=== PATIENT | female | born 1955 | race Two or more races ===

== ENCOUNTER 2022-01-07 18:25 | Emergency (ER) | payer SELFPAY ==
[~2022-01-07] VITALS: Ht 154.9 cm; Wt 54.5 kg
[2022-01-07] MEDS ORDERED: ONDANSETRON PF 4 MG/2 ML VIAL. IVP ONE (20:00)
[2022-01-07] MEDS ORDERED: KETOROLAC 15 MG/ML VIAL. IVP ONE (20:00)
[2022-01-07] MEDS ORDERED: MORPHINE SULFATE 4 MG/ML INJ. IVP ONE (20:00)
[2022-01-07 20:02] LABS: BASO # 0.1 x10^3/uL (0.0-0.2); BASO % 1 % (0-3); EOS # 0.1 x10^3/uL (0.0-0.7); EOS % 1 % (0-3); HEMATOCRIT 37.7 % (36.0-47.0); HEMOGLOBIN 12.6 g/dL (12.0-15.5); LYMPH # 1.8 x10^3/uL (1.0-4.8); LYMPH % 18 % (24-48); MEAN CORPUSCULAR HEMOGLOBIN 27 pg (25-35); MEAN CORPUSCULAR HGB CONC 33 g/dL (31-37); MEAN CORPUSCULAR VOLUME 81 fL (79-100); MONO # 0.9 x10^3/uL (0.0-1.1); MONO % 9 % (0-9); NEUT # 7.2 x10^3/uL (1.8-7.7); NEUT % 71 % (31-73); PLATELET COUNT 356 x10^3/uL (140-400); RED BLOOD COUNT 4.66 x10^6/uL (3.50-5.40); RED CELL DISTRIBUTION WIDTH 14.3 % (11.5-14.5); WHITE BLOOD COUNT 10.1 x10^3/uL (4.0-11.0)
[2022-01-07 20:10] LABS: BACTERIA,URINE 0 /HPF (0-FEW); RBC,URINE 0 /HPF (0-2); WBC,URINE OCC /HPF (0-4)
[2022-01-07 20:12] LABS: CALCIUM 9.3 mg/dL (8.5-10.1); CREATININE 1.2 mg/dL (0.6-1.0); GFR 45.2; POTASSIUM 3.8 mmol/L (3.5-5.1)
[2022-01-07 20:19] LABS: ALBUMIN 3.6 g/dL (3.4-5.0); ALBUMIN/GLOBULIN RATIO 0.9 (1.0-1.7); TOTAL BILIRUBIN 0.3 mg/dL (0.2-1.0); TOTAL PROTEIN 7.8 g/dL (6.4-8.2)
--- NOTE | 2022-01-07 20:48 | RAD ---
AP chest. HISTORY: Epigastric pain AP view was taken of the chest. Heart is normal in size. There is no effusion. There is a slight inte rstitial prominence which could be minimal interstitial infiltrates or mild fibrosis. I do not have a n old study for comparison. There is no confluent pneumonia. IMPRESSION: 1. Slight interstitial prominence without a confluent pneumonia. Electronically signed by: Reji Rangel MD (01/07/2022 8:46 PM) [facility]
[2022-01-07] MEDS ORDERED: CONTRAST GIVEN. MC PRN (21:00)
--- NOTE | 2022-01-07 21:10 | RAD ---
EXAM: ULTRASOUND ABDOMEN LIMITED CLINICAL HISTORY: Reason: epigastric and RUQ pain, marked leukocytosis; eval GB and biliary system / Spl. Instructions: / History: COMPARISON: None available. TECHNIQUE: Limited ultrasound examination of the right upper quadrant of the abdomen was performed. FINDINGS: Liver contour is normal. Hepatopedal flow noted in the portal vein. Gallbladder is absent. Common bile duct measures 5 mm in diameter. Right kidney measures 9.3 cm in long axis. No hydronephrosis. Visualized portions aorta and IVC are unremarkable. IMPRESSION: 1. Gallbladder is absent. 2. Normal sonographic appearance the liver. 3. No right-sided hydronephrosis. Electronically signed by: Fidel Mathew MD (01/07/2022 9:08 PM) [facility]
[2022-01-07] MEDS ORDERED: IOHEXOL 300 MG/ML 100ML VIAL. IV ONE (21:30)
--- NOTE | 2022-01-07 21:44 | RAD ---
PQRS Compliance Statement: One or more of the following individualized dose reduction techniques were utilized for this examinat ion: 1. Automated exposure control 2. Adjustment of the mA and/or kV according to patient size 3. Use of iterative reconstruction technique CT ABDOMEN+PELVIS W Clinical Indication: Reason: upper > generalized abd pain x1 week Comparison: None. Technique: Helical CT imaging of the abdomen and pelvis is performed after 60 cc of Omnipaque 300 IV contrast. Oral contrast not administered. Findings: There is a 4 mm nodule in the right middle lobe, image 8. There is a 3 mm nodule in the lingula, imag e 3. There is mild scarring or atelectasis inferiorly in the right middle lobe. Cardiac size normal. Cholecystectomy. The liver, spleen, pancreas, adrenal glands, and abdominal aorta caliber are normal. Kidneys enhance symmetrically, no hydronephrosis. Small left renal cyst does not require follow-up. The stomach is mostly decompressed. Small fat-containing umbilical hernia. There is no dilated small bowel. There is distal colon diverticulosis. The appendix is not identified, no secondary signs of ap pendicitis. No colon wall thickening is seen. There is no abdominal adenopathy or free fluid. The urinary bladder is normal. There is a rim calcified fibroid measuring 2.4 cm. Uterus is atrophic. There is no pelvic free fluid. No acute bone abnormality. IMPRESSION: 1. No acute abdominal or pelvic abnormality. 2. Distal colon diverticulosis. 3. Calcified uterine fibroid. 4. There are 2 3-4 mm noncalcified nodules in the lung bases. Consider CT chest follow-up in 12 tika hs if patient has risk factors for lung malignancy, otherwise no follow-up is required per Fleischner Society guidelines. Electronically signed by: Jose Darby MD (01/07/2022 9:42 PM) [facility]
[2022-01-07] MEDS ORDERED: ACET500T68 PO (22:26)
[2022-01-07] MEDS ORDERED: SUCR1TAB35 PO (22:26)
[2022-01-07] MEDS ORDERED: OMEP20CA16 PO (22:26)
--- NOTE | 2022-01-07 22:27 | PHYS DOC ---
Past Medical History Past Surgical History: Appendectomy, Cholecystectomy Smoking Status: Current Some Day Smoker Alcohol Use: Occasionally Adult General Chief Complaint Chief Complaint: ABDOMINAL PAIN HPI HPI The patient is a 66-year-old female who presents for evaluation of about 1 week of focal, sharp, nonradiating epigastric pain associated with nausea. Discomfort is constant, worse with deep palpation of the epigastrium and nothing else seems to make it better or worse. No associated fevers, vomiting, hematemesis, hematochezia or melena, upper respiratory congestion/rhinorrhea, cough, sore throat, shortness of breath or chest pain of any kind, abdominal pain of any kind, flank pain, midline back pain, dysuria, hematuria, polyuria or oliguria, changes in bowel habits, unusual vaginal discharge or bleeding, pain or swelling to arms or legs. Patient was seen a couple of days ago by primary care at which time labs were obtained and were remarkable for a marked leukocytosis. Labs were otherwise generally reassuring. Patient was redirected to the emergency department because of the leukocytosis. Review of Systems Review of Systems A 12 point review of systems was completed and was negative except where noted in HPI above. Current Medications Current Medications Current Medications Medications (Trade) Dose Ordered Sig/Kat Start Time Stop Time Status Last Admin Dose Admin Famotidine (Pepcid) 20 mg 1X ONCE 01/07/22 22:30 01/07/22 22:31 DC 01/07/22 21:54 20 MG Info (CONTRAST GIVEN -- Rx MONITORING) 1 each PRN DAILY PRN 01/07/22 21:00 01/07/22 22:45 DC Iohexol (Omnipaque 300 Mg/ml) 75 ml 1X ONCE 01/07/22 21:30 01/07/22 21:31 DC 01/07/22 21:25 75 ML Ketorolac Tromethamine (Toradol 15mg Vial) 15 mg 1X ONCE 01/07/22 20:00 01/07/22 20:01 DC 01/07/22 20:06 15 MG Morphine Sulfate (Morphine Sulfate) 4 mg 1X ONCE 01/07/22 20:00 01/07/22 20:01 DC Multi-Ingredient Mouthwash/Gargle (Gi Cocktail) 20 ml 1X ONCE 01/07/22 22:30 01/07/22 22:31 DC 01/07/22 21:54 20 ML Ondansetron HCl (Zofran) 4 mg 1X ONCE 01/07/22 20:00 01/07/22 20:01 DC 01/07/22 20:06 4 MG Allergies Allergies Allergies Coded Allergies Type Severity Reaction Last Updated Verified No Known Drug Allergies 01/07/22 No Physical Exam Physical Exam 66-year-old female appearing nontoxic and in no acute distress. Head is normocephalic and atraumatic. Neck is supple and nontender. Oropharynx is mo ist. Lungs are clear to auscultation at all stations. There is a normal S1 and S2 without rubs or gallops and capillary refill is appropriate, less than 2 seconds globally. Abdomen is soft, nondistended and with mild focal epigastric tenderness to palpation without rebound or guarding. No right-sided or lower quadrant abdominal tenderness to palpation. Skin is warm and dry without cyanosis, clubbing or edema. Psychiatrically, the patient demonstrates appropriate mood and affect and is alert. Current Patient Data Vital Signs Vital Signs Date Time Temp Pulse Resp B/P (MAP) Pulse Ox O2 Delivery O2 Flow Rate FiO2 01/07/22 22:40 70 14 133/68 (89) 95 Room Air 01/07/22 18:40 97.8 97.8 Lab Values Laboratory Tests Test 01/07/22 18:53 01/07/22 19:25 Urine Collection Type Unknown Urine Color (Auto) Colorless Urine Turbidity Clear Urine pH (Auto) 5.5 (<5.0-8.0) Urine Specific [place] 1.005 (1.000-1.030) Urine Protein (Auto) Negative mg/dL (Negative) Urine Glucose (Auto)(UA) Negative mg/dL (Negative) Urine Ketones (Auto) Negative mg/dL (Negative) Urine Blood (Auto) Negative (Negative) Urine Nitrite Negative (Negative) Urine Bilirubin (Auto) Negative (Negative) Urine Urobilinogen (Auto) Normal mg/dL (Normal) Urine Leukocyte Esterase (Auto) Negative (Negative) Urine RBC 0 /HPF (0-2) Urine WBC Occ /HPF (0-4) Urine Bacteria 0 /HPF (0-FEW) White Blood Count 10.1 x10^3/uL (4.0-11.0) Red Blood Count 4.66 x10^6/uL (3.50-5.40) Hemoglobin 12.6 g/dL (12.0-15.5) Hematocrit 37.7 % (36.0-47.0) Mean Corpuscular Volume 81 fL (79-100) Mean Corpuscular Hemoglobin 27 pg (25-35) Mean Corpuscular Hemoglobin Concent 33 g/dL (31-37) Red Cell Distribution Width 14.3 % (11.5-14.5) Platelet Count 356 x10^3/uL (140-400) Neutrophils (%) (Auto) 71 % (31-73) Lymphocytes (%) (Auto) 18 % (24-48) L Monocytes (%) (Auto) 9 % (0-9) Eosinophils (%) (Auto) 1 % (0-3) Basophils (%) (Auto) 1 % (0-3) Neutrophils # (Auto) 7.2 x10^3/uL (1.8-7.7) Lymphocytes # (Auto) 1.8 x10^3/uL (1.0-4.8) Monocytes # (Auto) 0.9 x10^3/uL (0.0-1.1) Eosinophils # (Auto) 0.1 x10^3/uL (0.0-0.7) Basophils # (Auto) 0.1 x10^3/uL (0.0-0.2) Sodium Level 136 mmol/L (136-145) Potassium Level 3.8 mmol/L (3.5-5.1) Chloride Level 102 mmol/L (98-107) Carbon Dioxide Level 26 mmol/L (21-32) Anion Gap 8 (6-14) Blood Urea Nitrogen 23 mg/dL (7-20) H Creatinine 1.2 mg/dL (0.6-1.0) H Estimated GFR (Cockcroft-Gault) 45.2 BUN/Creatinine Ratio 19 (6-20) Glucose Level 112 mg/dL (70-99) H Lactic Acid Level 0.7 mmol/L (0.4-2.0) Calcium Level 9.3 mg/dL (8.5-10.1) Total Bilirubin 0.3 mg/dL (0.2-1.0) Aspartate Amino Transferase (AST) 13 U/L (15-37) L Alanine Aminotransferase (ALT) 17 U/L (14-59) Alkaline Phosphatase 65 U/L (46-116) Troponin I High Sensitivity 5 ng/L (4-50) Total Protein 7.8 g/dL (6.4-8.2) Albumin 3.6 g/dL (3.4-5.0) Albumin/Globulin Ratio 0.9 (1.0-1.7) L Lipase 103 U/L (73-393) Laboratory Tests 01/07/22 19:25 Laboratory Tests 01/07/22 19:25 EKG EKG Sinus rhythm, rate 73, no acute ST elevation or depression, FL 148, QRS 78, QTc 424, EP interpretation. Nonischemic tracing, intervals appropriate. Radiology/Procedures Radiology/Procedures CT ABDOMEN+PELVIS W Clinical Indication: Reason: upper > generalized abd pain x1 week Comparison: None. Technique: Helical CT imaging of the abdomen and pelvis is performed after 60 cc of Omnipaque 300 IV contrast. Oral contrast not administered. Findings: There is a 4 mm nodule in the right middle lobe, image 8. There is a 3 mm nodule in the lingula, image 3. There is mild scarring or atelectasis inferiorly in the right middle lobe. Cardiac size normal. Cholecystectomy. The liver, spleen, pancreas, adrenal glands, and abdominal aorta caliber are normal. Kidneys enhance symmetrically, no hydronephrosis. Small left renal cyst does not require follow-up. The stomach is mostly decompressed. Small fat-containing umbilical hernia. There is no dilated small bowel. There is distal colon diverticulosis. The appendix is not identified, no secondary signs of appendicitis. No colon wall thickening is seen. There is no abdominal adenopathy or free fluid. The urinary bladder is normal. There is a rim calcified fibroid measuring 2.4 cm. Uterus is atrophic. There is no pelvic free fluid. No acute bone abnormality. IMPRESSION: 1. No acute abdominal or pelvic abnormality. 2. Distal colon diverticulosis. 3. Calcified uterine fibroid. 4. There are 2 3-4 mm noncalcified nodules in the lung bases. Consider CT chest follow-up in 12 months if patient has risk factors for lung malignancy, otherwise no follow-up is required per Fleischner Society guidelines. Electronically signed by: Jose Darby MD (01/07/2022 9:42 PM) [facility] DICTATED and SIGNED BY: JOSE DARBY MD DATE: 01/07/222133 []EXAM: ULTRASOUND ABDOMEN LIMITED CLINICAL HISTORY: Reason: epigastric and RUQ pain, marked leukocytosis; eval GB and biliary system / Spl. Instructions: / History: COMPARISON: None available. TECHNIQUE: Limited ultrasound examination of the right upper quadrant of the abdomen was performed. FINDINGS: Liver contour is normal. Hepatopedal flow noted in the portal vein. Gallbladder is absent. Common bile duct measures 5 mm in diameter. Right kidney measures 9.3 cm in long axis. No hydronephrosis. Visualized portions aorta and IVC are unremarkable. IMPRESSION: 1. Gallbladder is absent. 2. Normal sonographic appearance the liver. 3. No right-sided hydronephrosis. Electronically signed by: Fidel Burnett MD (01/07/2022 9:08 PM) [facility] DICTATED and SIGNED BY: FIDEL BURNETT MD DATE: 01/07/222105 AP chest. HISTORY: Epigastric pain AP view was taken of the chest. Heart is normal in size. There is no effusion. There is a slight interstitial prominence which could be minimal interstitial infiltrates or mild fibrosis. I do not have an old study for comparison. There is no confluent pneumonia. IMPRESSION: 1. Slight interstitial prominence without a confluent pneumonia. Electronically signed by: Reji Rangel MD (01/07/2022 8:46 PM) [facility] DICTATED and SIGNED BY: REJI RANGEL MD DATE: 01/07/222044 Course & Med Decision Making Course & Med Decision Making Labs and imaging wholly nonacute. Leukocytosis seen a couple of days ago on outpatient labs has completely resolved. Patient had complete resolution of her presenting abdominal discomfort after a GI cocktail and some Pepcid. Suspect acid reflux, gastritis or ulcer. Will cover empirically for ulcer with ome prazole DR and Carafate and will redirect to gastroenterology for close follow- up in the office. Patient will likely benefit from upper endoscopy. She understands that if she feels worse instead of better or develops other new symptoms of concern that she will need to return to emergency department immediately for reevaluation. All questions were answered. Fluent bedside French interpretation used to obtain history, perform examination, and disposition the patient. Dragon Disclaimer Dragon Disclaimer This electronic medical record was generated, in whole or in part, using a voice recognition dictation system. Departure Departure Impression: Primary Impression: Acute epigastric pain Disposition: 01 HOME / SELF CARE / HOMELESS Condition: IMPROVED Referrals: NETO GALEANO MD Patient Instructions: Abdominal Pain (Nonspecific) Additional Instructions: Follow-up very closely with Dr. Galeano of gastroenterology (the stomach and intestine doctors) in the next 2 to 4 days for reevaluation of your symptoms and a discussion of next best steps in care. Call tomorrow to make an appointment to be seen and let the clinical psychology teacher know that you were in the emergency dep artment for abdominal pain and the emergency doctor wanted you to have very close follow-up in the next 1 week with the GI doctor. In the meantime, drink plenty of fluids. Begin taking the omeprazole acid robbi medication once a day as prescribed to reduce stomach acid and improve discomfort. Take the Carafate medication 4 times a day before meals and at bedtime. For pain, you may also take a 500 mg extra strength Tylenol every 6 hours as needed. Return to the emergency department right away for worsening symptoms of any kind or with any other new symptoms of concern. Scripts Acetaminophen (ACETAMINOPHEN) 500 Mg Tablet 1 TAB PO PRN Q6HRS PRN for pain or fever for 15 Days, #60 TAB 0 Refills Prov: JESSE LOPEZ MD 01/07/22 Sucralfate (CARAFATE) 1 Gm Tablet 1 TAB PO QID for 30 Days, #120 TAB 0 Refills Prov: JESSE LOPEZ MD 01/07/22 Omeprazole (OMEPRAZOLE) 20 Mg Capsule. 1 CAP PO DAILY, #30 CAP 1 Refill Prov: JESSE LOPEZ MD 01/07/22 JESSE LOPEZ MD Jan 07, 2022 22:27
[2022-01-07] MEDS ORDERED: LIDO:MAALOX 1:1 20 ML SINGLE DOSE. SWSW ONE (22:30)
[2022-01-07] MEDS ORDERED: FAMOTIDINE 20 MG TABLET. PO ONE (22:30)
[2022-01-07 22:40] VITALS: BP 133/68
--- NOTE | 2022-01-08 13:46 | EKG ---
[facility] [address] [place] [address] Test Date: 2022-01-07 Test Time: 20:28:30 Pat Name: ABNER CAZARES Department: Room: Gender: F Body Mechanic: : 1955 Requested By: JESSE LOPEZ Order Number: [id number] Reading MD: Andrea Schroeder Measurements Intervals [place] Rate: 73 P: 137 [place]: 148 QRS: -180 QRSD: 78 T: 152 QT: 382 QTc: 424 Interpretive Statements SINUS RHYTHM T ABNORMALITY IN HIGH LATERAL LEADS ABNORMAL ECG RI6.01 No previous ECG available for comparison Electronically Signed On 01-10-2022 13:38:01 CDT by Andrea Schroeder
[2022-01-15] MEDS ORDERED: LEVO500T9 PO (12:17)
[2022-01-15] MEDS ORDERED: ALBU2.5V8 IH (12:17)
[2022-01-15] MEDS ORDERED: DOXY100C3 PO (12:17)
[2022-01-15] MEDS ORDERED: METH4TAB2 PO (12:17)
== END 2022-01-07 22:42 | disposition home or self-care (01) ==
LOC: ER 18:25
DX: R10.13 Epigastric pain (principal); R11.0 Nausea; F17.200 Nicotine dependence, unspecified, uncomplicated; Z90.89 Acquired absence of other organs; Z90.49 Acquired absence of other specified parts of digestive tract
CPT/HCPCS: 36415; 71045; 74177; 76705; 80053; 81001; 83605; 83690; 84484; 85025; 93005; 96374; 96375; 99285; J1885; J2405; Q9967

== ENCOUNTER 2022-01-13 01:20 | Inpatient (IN) | payer SELFPAY ==
[~2022-01-13] VITALS: Ht 160 cm; Wt 65.9 kg
[~2022-01-13 01:20] MED LIST: ACET500T68 PO; OMEP20CA16 PO; SUCR1TAB35 PO
[2022-01-13] MEDS ORDERED: ACETAMINOPHEN 500 MG TABLET PO ONE (02:00)
[2022-01-13] MEDS ORDERED: ONDANSETRON PF 4 MG/2 ML VIAL. IVP ONE (02:00)
[2022-01-13] MEDS ORDERED: IV NORMAL SALINE 1000ML BAG 1,000 ML IV ONE ×2 (02:00→02:45)
[2022-01-13] MEDS ORDERED: KETOROLAC 15 MG/ML VIAL. IVP ONE (02:00)
[2022-01-13 02:02] LABS: BASO # 0.1 x10^3/uL (0.0-0.2); BASO % 1 % (0-3); EOS # 0.1 x10^3/uL (0.0-0.7); EOS % 0 % (0-3); HEMATOCRIT 39.4 % (36.0-47.0); HEMOGLOBIN 12.9 g/dL (12.0-15.5); LYMPH # 0.9 x10^3/uL (1.0-4.8); LYMPH % 5 % (24-48); MEAN CORPUSCULAR HEMOGLOBIN 26 pg (25-35); MEAN CORPUSCULAR HGB CONC 33 g/dL (31-37); MEAN CORPUSCULAR VOLUME 80 fL (79-100); MONO # 0.9 x10^3/uL (0.0-1.1); MONO % 4 % (0-9); NEUT # 17.4 x10^3/uL (1.8-7.7); NEUT % 90 % (31-73); PLATELET COUNT 375 x10^3/uL (140-400); RED BLOOD COUNT 4.94 x10^6/uL (3.50-5.40); RED CELL DISTRIBUTION WIDTH 13.9 % (11.5-14.5); WHITE BLOOD COUNT 19.4 x10^3/uL (4.0-11.0)
[2022-01-13 02:10] LABS: CALCIUM 9.3 mg/dL (8.5-10.1); CREATININE 0.9 mg/dL (0.6-1.0); POTASSIUM 3.7 mmol/L (3.5-5.1)
[2022-01-13 02:16] LABS: ALBUMIN 3.3 g/dL (3.4-5.0); ALBUMIN/GLOBULIN RATIO 0.7 (1.0-1.7); TOTAL BILIRUBIN 0.4 mg/dL (0.2-1.0); TOTAL PROTEIN 7.9 g/dL (6.4-8.2)
--- NOTE | 2022-01-13 02:30 | PHYS DOC ---
Past Medical History Past Surgical History: Appendectomy, Cholecystectomy, (JESSE LOPEZ MD) Smoking Status: Never Smoker Alcohol Use: None (JESSE LOPEZ MD) Adult General Chief Complaint Chief Complaint: SHORTNESS OF BREATH HPI HPI The patient is a 66-year-old female with a history of hypertension on lisinopril and who is otherwise healthy. She has a history of cholecystectomy, appendectomy and in the past. She presents for evaluation of suprapubic discomfort, burning pain with urination and bilateral low back pain, in association with tachycardia and intermittent fevers, all with onset over the last 6 to 7 days and worsening over the past couple of days. Associated nausea. Contrary to the triage note, no shortness of breath. Patient states she just feels like her breathing is fast at times when her temperature is elevated. She does endorse a chronic cough which is not worse or different than it has been recently. Patient denies associated vomiting, upper respiratory congestion/rhinorrhea, sore throat, chest pain of any kind, right-sided abdominal pain, flank pain, hematuria, polyuria or oliguria, unusual vaginal discharge or bleeding, changes in bowel habits, pain or swelling to arms or legs. Patient is alert, pleasantly and appropriately interactive and in no acute di stress with appropriate vital signs aside from a degree of tachycardia and a degree of elevated blood pressure upon initial evaluation here in the emergency department. She is ambulatory to her ED bed with a narrow, steady gait. (JESSE LOPEZ MD) HPI Patient relates to me that leukocytosis and fevers have been ongoing for several weeks now. Called by primary care physician and sent to the emergency department previously, discharged without diagnosis. (QUE JAQUEZ MD) Review of Systems Review of Systems A 12 point review of systems was completed and was negative except where noted in HPI above. (JESSE LOPEZ MD) Current Medications Current Medications Current Medications Medications (Trade) Dose Ordered Sig/Kat Start Time Stop Time Status Last Admin Dose Admin Acetaminophen (Tylenol) 1,000 mg 1X ONCE 01/13/22 02:00 01/13/22 02:01 DC 01/13/22 02:09 1,000 MG Azithromycin (Zithromax) 500 mg 1X ONCE 01/13/22 10:00 01/13/22 10:01 UNV Ceftriaxone Sodium (Rocephin) 1 gm 1X ONCE 01/13/22 10:00 01/13/22 10:01 UNV Info (CONTRAST GIVEN -- Rx MONITORING) 1 each PRN DAILY PRN 01/13/22 05:15 01/15/22 05:14 Iohexol (Omnipaque 300 Mg/ml) 75 ml 1X ONCE 01/13/22 05:15 01/13/22 05:16 DC 01/13/22 06:00 75 ML Ketorolac Tromethamine (Toradol 15mg Vial) 15 mg 1X ONCE 01/13/22 02:00 01/13/22 02:01 DC 01/13/22 02:08 15 MG Ondansetron HCl (Zofran) 4 mg 1X ONCE 01/13/22 02:00 01/13/22 02:01 DC 01/13/22 02:08 4 MG Sodium Chloride 1,000 ml @ 1,000 mls/hr 1X ONCE 01/13/22 02:45 01/13/22 03:44 DC 01/13/22 04:10 1,000 MLS/HR (QUE JAQUEZ MD) Allergies Allergies Allergies Coded Allergies Type Severity Reaction Last Updated Verified No Known Drug Allergies 01/07/22 No (QUE JAQUEZ MD) Physical Exam Physical Exam 66-year-old female appearing nontoxic and in no acute distress. Head is normocephalic and atraumatic. Neck is supple and nontender. Patient ranges neck fully in all dimensions without discomfort or distress and there is no s tiffness/rigidity/meningismus seen. Kernig's and Brudzinski's are negative. Oropharynx is moist. Lungs are clear to auscultation at all stations. There is a normal S1 and S2 without rubs or gallops and capillary refill is appropriate, less than 2 seconds globally. Abdomen is soft and nondistended with mild focal suprapubic tenderness to palpation without rebound or guarding. No right lower quadrant tenderness to palpation. No upper quadrant tenderness to palpation. No organomegaly. No pulsatile mass. Skin is warm and dry without cyanosis, clubbing or edema. Psychiatrically, the patient demonstrates appropriate mood and affect and is alert. Evaluation of the extremities reveals BUEs and BLEs neurovascularly intact distally with strength out of 5, sensation intact light touch in all nerve distributions, radial, DP and PT pulses 2+ and equal bilaterally, capillary refill less than 2 seconds, hands and feet warm and well- perfused. No dependent peripheral edema distally. No calf tenderness or swelling bilaterally. Kraen's test is negative bilaterally. (JESSE LOPEZ MD) Physical Exam VITALS: See Above GENERAL: The patient appears well-developed, well-nourished in no apparent distress. The patient is alert and oriented x4. HEAD: Head is normocephalic and atraumatic. EYES: Extraocular muscles are intact. Pupils are equal, round, and reactive to light and accommodation. Sclera non-icteric. Conjunctivae non-injected. EARS/NOSE/MOUTH/THROAT: External inspection of the ears and nose reveals a normal overall appearance without lesions or scars. Nares are patent. Mouth is well hydrated and without lesions. Mucous membranes are moist. Posterior pharynx clear of any exudate or lesions. NECK: Supple. Trachea Midline. No lymphadenopathy or thyromegaly. LUNGS: Clear to auscultation. No rhonchi. No rales. No crackles. No wheezes. No retractions or increased work of breathing. HEART: Regular rate and rhythm without murmurs, rubs, gallops. Normal S1/S2. Capillary refill less than 2 seconds. ABDOMEN: Soft, +tenderness to palpation on right, and nondistended. Positive bowel sounds. No hepatosplenomegaly, no masses, no hernias noted. EXTREMITIES: Without any cyanosis, clubbing, rash, lesions or edema. NEUROLOGIC: CN II-XII grossly intact PSYCHIATRIC: Normal affect, Normal mood. SKIN: Warm and dry. No ulceration or induration noted. (QUE JAQUEZ MD) Current Patient Data Vital Signs Vital Signs Date Time Temp Pulse Resp B/P (MAP) Pulse Ox O2 Delivery O2 Flow Rate FiO2 01/13/22 07:33 74 124/74 (91) 01/13/22 05:07 18 97 01/13/22 01:22 99.0 Room Air 99.0 (QUE JAQUEZ MD) Lab Values Laboratory Tests Test 01/13/22 01:40 01/13/22 01:48 01/13/22 04:11 White Blood Count 19.4 x10^3/uL (4.0-11.0) H Red Blood Count 4.94 x10^6/uL (3.50-5.40) Hemoglobin 12.9 g/dL (12.0-15.5) Hematocrit 39.4 % (36.0-47.0) Mean Corpuscular Volume 80 fL (79-100) Mean Corpuscular Hemoglobin 26 pg (25-35) Mean Corpuscular Hemoglobin Concent 33 g/dL (31-37) Red Cell Distribution Width 13.9 % (11.5-14.5) Platelet Count 375 x10^3/uL (140-400) Neutrophils (%) (Auto) 90 % (31-73) H Lymphocytes (%) (Auto) 5 % (24-48) L Monocytes (%) (Auto) 4 % (0-9) Eosinophils (%) (Auto) 0 % (0-3) Basophils (%) (Auto) 1 % (0-3) Neutrophils # (Auto) 17.4 x10^3/uL (1.8-7.7) H Lymphocytes # (Auto) 0.9 x10^3/uL (1.0-4.8) L Monocytes # (Auto) 0.9 x10^3/uL (0.0-1.1) Eosinophils # (Auto) 0.1 x10^3/uL (0.0-0.7) Basophils # (Auto) 0.1 x10^3/uL (0.0-0.2) Sodium Level 135 mmol/L (136-145) L Potassium Level 3.7 mmol/L (3.5-5.1) Chloride Level 100 mmol/L (98-107) Carbon Dioxide Level 22 mmol/L (21-32) Anion Gap 13 (6-14) Blood Urea Nitrogen 15 mg/dL (7-20) Creatinine 0.9 mg/dL (0.6-1.0) Estimated GFR (Cockcroft-Gault) 63.0 BUN/Creatinine Ratio 17 (6-20) Glucose Level 157 mg/dL (70-99) H Lactic Acid Level 1.7 mmol/L (0.4-2.0) Calcium Level 9.3 mg/dL (8.5-10.1) Total Bilirubin 0.4 mg/dL (0.2-1.0) Aspartate Amino Transferase (AST) 17 U/L (15-37) Alanine Aminotransferase (ALT) 21 U/L (14-59) Alkaline Phosphatase 65 U/L (46-116) Troponin I High Sensitivity 5 ng/L (4-50) Total Protein 7.9 g/dL (6.4-8.2) Albumin 3.3 g/dL (3.4-5.0) L Albumin/Globulin Ratio 0.7 (1.0-1.7) L Procalcitonin < 0.10 ng/mL (0.00-0.10) Glucose (Fingerstick) 185 mg/dL (70-99) H Urine Collection Type Unknown Urine Color (Auto) Colorless Urine Turbidity Clear Urine pH (Auto) 5.5 (<5.0-8.0) Urine Specific [place] 1.005 (1.000-1.030) Urine Protein (Auto) Negative mg/dL (Negative) Urine Glucose (Auto)(UA) Negative mg/dL (Negative) Urine Ketones (Auto) Negative mg/dL (Negative) Urine Blood (Auto) Negative (Negative) Urine Nitrite Negative (Negative) Urine Bilirubin (Auto) Negative (Negative) Urine Urobilinogen (Auto) Normal mg/dL (Normal) Urine Leukocyte Esterase (Auto) Negative (Negative) Urine RBC 0 /HPF (0-2) Urine WBC Occ /HPF (0-4) Urine Squamous Epithelial Cells Occ /LPF Urine Bacteria 0 /HPF (0-FEW) Laboratory Tests 01/13/22 01:40 Laboratory Tests 01/13/22 01:40 (QUE JAQUEZ MD) EKG EKG Sinus rhythm, rate 127, no acute ST elevation or depression, HI 130, QRS 76, QTc 418, EP interpretation. Nonischemic tracing, intervals appropriate. (JESSE LOPEZ MD) Radiology/Procedures Radiology/Procedures [] (JESSE LOPEZ MD) Radiology/Procedures PATIENT: ABNER CAZARESACCOUNT: [id number]#: [id number] : 1955 LOCATION: ER AGE: 66 SEX: F EXAM STATUS: REG ER ORD. PHYSICIAN: JESSE LOPEZ MD REASON: pleuritic chest pain, cough,FEVER,LOW LEUKOCYTES;OMNI 350,100ML PROCEDURE: CT ANGIO CHEST W ABD PEL W/ CT angiography chest with contrast. CT abdomen and pelvis with contrast PQRS statement: CT scans at this facility use dose reduction including either automated exposure control, iterative reconstructions, and /or weight based radiation dosing via mA and kV modification when appropriate to reduce radiation dose to as low as reasonably achievable. HISTORY: Chest pain, cough, fever, leukopenia. Contrast: 1 mL Optiray 350 intravenous contrast with 3-D MIP reconstructions of the arteries acquired. COMPARISON: CT abdomen January 07, 2002 Chest findings: Ascending aorta diameter 3.1 cm. No thoracic aorta aneurysm or dissection. Heart size is normal. Esophagus is normal. No pulmonary emboli. Increase in number of mediastinal and hilar lymph nodes which are upper limits of normal size with short axis diameters of 1 cm. Trachea and bronchi are unremarkable. There are diffuse centrilobular type groundglass nodule of both lungs. There are also scattered solid typed nodules with groundglass halos bilaterally. There is a dominant irregular solid 15 mm nodule right upper lobe posterior segment image 31. Heterogeneous opacities associated with centrilobular nodularity at the right middle and lower lobes. Bones are unremarkable. Abdomen findings: Prominence of the common bile duct typical after cholecystectomy. Lower lumbar disc bulges. Spleen, pancreas, adrenal glands and right kidney are unremarkable. Subcentimeter hypodensities left kidney too small to characterize most likely small cysts. No obstruction or inflammation GI tract. The aorta and iliac artery calcified plaque. Along the anterior wall of the lower abdominal aorta best demonstrated on axial images 37-39 there is mild hyperdense wall thickening this was not evident on the prior exam, it is uncertain this represents a hyperdense intramural hematoma of the aorta on this postcontrast study or if this represents thickened wall enhancement from aortitis, this is near the region of inferior mesenteric artery origin. No retroperitoneal hematoma. No hemoperitoneum. No abdominal fluid or adenopathy. Pelvis findings: 2 cm peripherally calcified uterine mass typical of a fibroid. Retroverted uterus. Bladder, IMPRESSION: 1. The infrarenal abdominal aorta along the anterior wall demonstrates a short segment of hyperdense wall thickening or hypervascular wall enhancement which on this postcontrast study could represent an acute hyperdense intramural hematoma, or hypervascular wall enhancement from aortitis. Hematoma versus inflammatory enhancement could be differentiated with noncontrast CT imaging. 2. No thoracic aortic aneurysm or dissection. No pulmonary emboli. 3. Extensive centrilobular type groundglass nodules throughout the lungs and scattered subcentimeter nodular opacities most likely a disseminated endobronchial infection or respiratory bronchiolitis. Separately at the right upper lobe is a 15 mm irregular solid nodule, this is indeterminate, this raises the possibility of lung malignancy. Short-term follow-up CT imaging in 3 months, versus PET imaging evaluation versus needle biopsy are considerations. 4. Borderline mediastinal and hilar adenopathy. Electronically signed by: Romero Sheppard MD (01/13/2022 6:39 AM) [facility] Imp[facility]: 66-year-old female with tobacco history presents with possible lung malignancy (QUE JAQUEZ MD) Course & Med Decision Making Course & Med Decision Making 66-year-old woman presenting for evaluation of symptoms which sound like urinary tract infection/pyelonephritis. Given tachycardia, will work-up with labs and cultures as noted and will give IV fluids and medication for nausea and discomfort and will then reevaluate. Given chronic cough, we will recheck a chest x-ray, though low suspicion for a primary pulmonary etiology for symptoms today. 0530: Labs remarkable primarily for a leukocytosis to 19,000. Heart rate has normalized after IV fluids. Urinalysis is without any evidence of infection. As yet, no source for infection. Expanding work-up with advanced imaging. Pending results of that testing and reevaluation for disposition, transition of care to Dr. Jaquez. (JESSE LOPEZ MD) Course & Med Decision Making Patient presents with a possible lung malignancy. Having B type symptoms. Will start on antibiotics and admit to hospitalist service under the care of Dr. Sebastian who agrees to accept the patient. Pulmonology consultation likely (QUE JAQUEZ MD) Dragon Disclaimer Dragon Disclaimer This electronic medical record was generated, in whole or in part, using a voice recognition dictation system. (JESSE LOPEZ MD) Departure Departure Impression: Primary Impression: Lower abdominal pain Additional Impression: Cough Condition: STABLE Referrals: NO PCP (PCP) Problem Qualifiers JESSE LOPEZ MD Jan 13, 2022 02:30 QUE JAQUEZ MD Jan 13, 2022 10:00
--- NOTE | 2022-01-13 03:02 | RAD ---
AP chest x-ray HISTORY: Cough. COMPARISON: Chest x-ray January 07, 2022 FINDINGS: Heart size normal. Aortic arch mild calcified plaque. No pneumothorax. No pleural effusions . There is mild diffuse coarsened interstitial markings throughout the lungs similar to the prior exa m. Development of mild linear discoid atelectasis at the right lung base. Bones are unremarkable. IMPRESSION: Diffuse coarsened pulmonary interstitial markings similar to the prior exam. This may be chronic interstitial lung disease versus an acute atypical infection such as viral pneumonia. Electronically signed by: Romero Sheppard MD (01/13/2022 3:00 AM) [facility]
[2022-01-13 04:55] LABS: BACTERIA,URINE 0 /HPF (0-FEW); RBC,URINE 0 /HPF (0-2); WBC,URINE OCC /HPF (0-4)
[2022-01-13] MEDS ORDERED: CONTRAST GIVEN. MC PRN (05:15)
[2022-01-13] MEDS ORDERED: IOHEXOL 300 MG/ML 100ML VIAL. IV ONE (05:15)
--- NOTE | 2022-01-13 06:41 | RAD ---
CT angiography chest with contrast. CT abdomen and pelvis with contrast PQRS statement: CT scans at this facility use dose reduction including either automated exposure cont rol, iterative reconstructions, and /or weight based radiation dosing via mA and kV modification when appropriate to reduce radiation dose to as low as reasonably achievable. HISTORY: Chest pain, cough, fever, leukopenia. Contrast: 1 mL Optiray 350 intravenous contrast with 3-D MIP reconstructions of the arteries acquired . COMPARISON: CT abdomen January 07, 2002 Chest findings: Ascending aorta diameter 3.1 cm. No thoracic aorta aneurysm or dissection. Heart size is normal. Esophagus is normal. No pulmonary emboli. Increase in number of mediastinal and hilar lym ph nodes which are upper limits of normal size with short axis diameters of 1 cm. Trachea and bronchi are unremarkable. There are diffuse centrilobular type groundglass nodule of both lungs. There are a lso scattered solid typed nodules with groundglass halos bilaterally. There is a dominant irregular s olid 15 mm nodule right upper lobe posterior segment image 31. Heterogeneous opacities associated wit h centrilobular nodularity at the right middle and lower lobes. Bones are unremarkable. Abdomen findings: Prominence of the common bile duct typical after cholecystectomy. Lower lumbar disc bulges. Spleen, pancreas, adrenal glands and right kidney are unremarkable. Subcentimeter hypodensit ies left kidney too small to characterize most likely small cysts. No obstruction or inflammation GI tract. The aorta and iliac artery calcified plaque. Along the anterior wall of the lower abdominal ao rta best demonstrated on axial images 37-39 there is mild hyperdense wall thickening this was not sharon dent on the prior exam, it is uncertain this represents a hyperdense intramural hematoma of the aorta on this postcontrast study or if this represents thickened wall enhancement from aortitis, this is n ear the region of inferior mesenteric artery origin. No retroperitoneal hematoma. No hemoperitoneum. No abdominal fluid or adenopathy. Pelvis findings: 2 cm peripherally calcified uterine mass typical of a fibroid. Retroverted uterus. B ladder, IMPRESSION: 1. The infrarenal abdominal aorta along the anterior wall demonstrates a short segment of hyperdense wall thickening or hypervascular wall enhancement which on this postcontrast study could represent an acute hyperdense intramural hematoma, or hypervascular wall enhancement from aortitis. Hematoma vers us inflammatory enhancement could be differentiated with noncontrast CT imaging. 2. No thoracic aortic aneurysm or dissection. No pulmonary emboli. 3. Extensive centrilobular type groundglass nodules throughout the lungs and scattered subcentimeter nodular opacities most likely a disseminated endobronchial infection or respiratory bronchiolitis. Se parately at the right upper lobe is a 15 mm irregular solid nodule, this is indeterminate, this raise s the possibility of lung malignancy. Short-term follow-up CT imaging in 3 months, versus PET imaging evaluation versus needle biopsy are considerations. 4. Borderline mediastinal and hilar adenopathy. Electronically signed by: Romero Sheppard MD (01/13/2022 6:39 AM) [facility]
--- NOTE | 2022-01-13 07:54 | RAD ---
CT abdomen pelvis without contrast dated 01/13/2022. COMPARISON: 01/13/2022 INDICATION: Evaluate abdominal aorta. Fever. Abnormal CT TECHNIQUE: Contiguous axial imaging the abdomen pelvis performed without the administration of IV contrast. One or more of the following individualized dose reduction techniques were utilized for this examinat ion: 1. Automated exposure control 2. Adjustment of the mA and/or kV according to patient size 3. Use of iterative reconstruction technique FINDINGS: There is contrast material within the renal collecting systems and urinary bladder. There may also be some retained contrast in the blood pool which would limit evaluation. Previously described area of wall thickening along the ventral abdominal aorta at its infrarenal portion appears to persist and me asures about 72-84 Hounsfield units on the precontrast images and 103-105 Hounsfield units on the pre vious CT, suggesting enhancement. The degree of wall thickening is stable. There is possible subtle i nflammatory stranding in the periaortic fat. No fluid collection. No expanding hematoma. Solid abdominal viscera not well evaluated in the absence of contrast material. No apparent attenuati on abnormality of the liver or spleen. Pancreas, adrenal glands and kidneys are unremarkable. No hydr onephrosis. Gallbladder surgically absent. Unopacified GI tract normal in caliber and contour. No focal bowel wall thickening. No inflammatory s tranding in the mesentery. No ascites or lymphadenopathy. Images of pelvis show nondistended urinary bladder. No bladder wall thickening. Calcified uterine fib roid. Bone window show no acute finding. Multilevel spondylosis. There are R patchy and linear groundglass opacities at both lung bases, unchanged. IMPRESSION: 1. Evaluation of the abdominal aorta is somewhat limited due to retained contrast. The previously mell cribed area of wall thickening likely show some enhancement, raising the question of inflammatory pro cesses such as aortitis. Follow-up imaging to ensure stability. 2. Otherwise no acute findings. 3. Fibroid uterus. Electronically signed by: Torres Cartagena MD (01/13/2022 7:51 AM) [facility]
[2022-01-13] MEDS ORDERED: AZITHROMYCIN 250 MG TABLET. PO ONE (10:00)
[2022-01-13] MEDS ORDERED: cefTRIAXone IV Push 1 GM VIAL. IVP ONE (10:00)
[2022-01-13] MEDS ORDERED: guaiFENesin/CODEINE 100mg/10mg 5 ML LIQUID PO PRN (11:15)
[2022-01-13 11:45] VITALS: BP 150/87
[2022-01-13] MEDS: IPRATRPIUM/ALBUTEROL 0.5/2.5MG 3 ML NEBU. NEB SCH ×3 (12:00→20:42)
[2022-01-13] MEDS: cefTRIAXone IV Push 1 GM VIAL. IVP SCH (12:00)
--- NOTE | 2022-01-13 14:00 | HP ---
DATE OF SERVICE: 01/13/2022 ADMIT DATE: 01/13/2022 CHIEF COMPLAINT: Abdominal pain, shortness of breath. HISTORY OF PRESENT ILLNESS: The patient is a pleasant 66-year-old female who presents to the ER with the above chief complaints. Basically, she has been short of breath. She has had some associated abdominal pain. While in the ER, a CAT scan of the chest is showing extensive central lobar type ground glass nodules throughout the lungs and scattered subcentimeter nodular opacities, most likely a disseminated endobronchial infection or respiratory bronchiolitis. There is also a right upper lobe irregular nodule that raises the possibility of a malignancy. I discussed the case with ER physician. We are going to admit the patient, give her IV antibiotics and consult Pulmonary Medicine. PAST MEDICAL AND SURGICAL HISTORY: Previous tobacco abuse (71-plac-r-year history), appendectomy, cholecystectomy, . ALLERGIES: None. FAMILY HISTORY: Diabetes. SOCIAL HISTORY: She smoked and has a 14 pack year history, but currently does not smoke. She is . MEDICATIONS: Reviewed, please refer to the MRAD. REVIEW OF SYSTEMS: GENERAL: No history of weight change, weakness or fevers. SKIN: No bruising, hair changes or rashes. EYES: No blurred, double or loss of vision. NOSE AND THROAT: No history of nosebleeds, hoarseness or sore throat. HEART: No history of palpitations or chest pain. LUNGS: She complains of shortness of breath. GASTROINTESTINAL: Denies changes in appetite, nausea, vomiting, diarrhea or constipation. GENITOURINARY: No history of frequency, urgency, hesitancy or nocturia. NEUROLOGIC: Denies history of numbness, tingling, tremor or weakness. PSYCHIATRIC: No history of panic, anxiety or depression. ENDOCRINE: No history of heat or cold intolerance, polyuria or polydipsia. EXTREMITIES: Denies muscle weakness, joint pain, pain on walking or stiffness. PHYSICAL EXAMINATION: VITALS: Within normal limits and are stable. GENERAL: No apparent distress. Alert and oriented. HEENT: Normal cephalic atraumatic, external auditory canals are patent EYES: Extraocular muscles are intact, pupils are equally round and reactive to light and accommodation MUSKULOSKELETAL: Well developed, well nourished, good range of motion ENDOCRINE: No thyromegaly was palpated LYMPHATICS: No cervical chain or axillary nodes were noted HEMATOPOIETIC: No bruising NECK: Supple, no JVD, no thyromegaly was noted. LUNGS: She has decreased breath sounds with some crackles on the left. HEART: RRR, S1, S2 present. Peripheral pulses intact, no obvious murmurs were noted. ABDOMEN: Soft, nontender. Positive bowel sounds no organomegaly, normal bowel sounds. EXTREMITIES: Without any cyanosis, clubbing, or edema. Pedal pulses intact, Homans sign is negative. NEUROLOGIC: Normal speech, normal tone. A and O x 3, moves all extremities, no obvious focal deficits. PSYCHIATRIC: Normal affect, normal mood. Stable. SKIN: No ulcerations or rashes, good skin turgor, no jaundice. VASCULAR: Good capillary refill, neurovascular bundle appears to be intact. LABORATORY DATA: White count is 19. Sodium is 135. Urinalysis negative. ASSESSMENT AND PLAN: Shortness of breath with abnormal imaging suspicious for atypical infection or malignancy. The patient has been admitted. We will start IV antibiotics, DuoNeb, oxygen, codeine cough syrup, breathing treatments. Consult Pulmonary Medicine. Home meds. DVT prophylaxis, Full Code. MARYCRUZ/DONALD/[facility] [place] DR: MARYCRUZ/kalyn TID: [id number]
[2022-01-13 14:54] VITALS: BP 146/82
[2022-01-13] MEDS: ASPIRIN CHEWABLE 81 MG TABLET. PO SCH (15:08)
[2022-01-13] MEDS: MULTIVITAMIN with MINERAL TABLET. PO SCH (15:08)
[2022-01-13] MEDS: LISINOPRIL 20 MG TABLET PO SCH (15:09)
[2022-01-13] MEDS: DOXYCYCLINE HYCLATE 100 MG in IV DEXTROSE 5% 100ML 100 ML IV SCH ×2 (15:11→21:42)
--- NOTE | 2022-01-13 15:13 | NUR ---
ceftriaxone given 5 hours ago in ED. medication is scheduled for every 24 hours
[2022-01-13] MEDS ORDERED: LISI20TA18 PO (15:50)
[2022-01-13 19:00] VITALS: BP 125/80
[2022-01-13 23:00] VITALS: BP 136/65
[2022-01-14 03:02] VITALS: BP 104/69
[2022-01-14 07:00] VITALS: BP 134/67
[2022-01-14] MEDS: IPRATRPIUM/ALBUTEROL 0.5/2.5MG 3 ML NEBU. NEB SCH ×4 (07:40→20:17)
[2022-01-14] MEDS: ASPIRIN CHEWABLE 81 MG TABLET. PO SCH (07:53)
[2022-01-14] MEDS: DOXYCYCLINE HYCLATE 100 MG in IV DEXTROSE 5% 100ML 100 ML IV SCH ×2 (07:54→21:16)
[2022-01-14] MEDS: LISINOPRIL 20 MG TABLET PO SCH (07:54)
[2022-01-14] MEDS: MULTIVITAMIN with MINERAL TABLET. PO SCH (07:54)
--- NOTE | 2022-01-14 08:12 | PDOC ---
PULMONARY PROGRESS NOTES DATE: 01/14/22 TIME: 08:12 Vitals Vital Signs Date Time Temp Pulse Resp B/P (MAP) Pulse Ox O2 Delivery O2 Flow Rate FiO2 01/14/22 07:54 85 104/69 01/14/22 07:40 Nasal Cannula 2.0 01/14/22 03:02 98.4 16 96 98.4 Labs Laboratory Tests Test 01/13/22 01:40 01/13/22 01:48 01/13/22 04:11 White Blood Count 19.4 x10^3/uL (4.0-11.0) Red Blood Count 4.94 x10^6/uL (3.50-5.40) Hemoglobin 12.9 g/dL (12.0-15.5) Hematocrit 39.4 % (36.0-47.0) Mean Corpuscular Volume 80 fL (79-100) Mean Corpuscular Hemoglobin 26 pg (25-35) Mean Corpuscular Hemoglobin Concent 33 g/dL (31-37) Red Cell Distribution Width 13.9 % (11.5-14.5) Platelet Count 375 x10^3/uL (140-400) Neutrophils (%) (Auto) 90 % (31-73) Lymphocytes (%) (Auto) 5 % (24-48) Monocytes (%) (Auto) 4 % (0-9) Eosinophils (%) (Auto) 0 % (0-3) Basophils (%) (Auto) 1 % (0-3) Neutrophils # (Auto) 17.4 x10^3/uL (1.8-7.7) Lymphocytes # (Auto) 0.9 x10^3/uL (1.0-4.8) Monocytes # (Auto) 0.9 x10^3/uL (0.0-1.1) Eosinophils # (Auto) 0.1 x10^3/uL (0.0-0.7) Basophils # (Auto) 0.1 x10^3/uL (0.0-0.2) Sodium Level 135 mmol/L (136-145) Potassium Level 3.7 mmol/L (3.5-5.1) Chloride Level 100 mmol/L (98-107) Carbon Dioxide Level 22 mmol/L (21-32) Anion Gap 13 (6-14) Blood Urea Nitrogen 15 mg/dL (7-20) Creatinine 0.9 mg/dL (0.6-1.0) Estimated GFR (Cockcroft-Gault) 63.0 BUN/Creatinine Ratio 17 (6-20) Glucose Level 157 mg/dL (70-99) Lactic Acid Level 1.7 mmol/L (0.4-2.0) Calcium Level 9.3 mg/dL (8.5-10.1) Total Bilirubin 0.4 mg/dL (0.2-1.0) Aspartate Amino Transf (AST/SGOT) 17 U/L (15-37) Alanine Aminotransferase (ALT/SGPT) 21 U/L (14-59) Alkaline Phosphatase 65 U/L (46-116) Troponin I High Sensitivity 5 ng/L (4-50) Total Protein 7.9 g/dL (6.4-8.2) Albumin 3.3 g/dL (3.4-5.0) Albumin/Globulin Ratio 0.7 (1.0-1.7) Procalcitonin < 0.10 ng/mL (0.00-0.10) Glucose (Fingerstick) 185 mg/dL (70-99) Urine Collection Type Unknown Urine Color (Auto) Colorless Urine Turbidity Clear Urine pH (Auto) 5.5 (<5.0-8.0) Urine Specific [place] 1.005 (1.000-1.030) Urine Protein (Auto) Negative mg/dL (Negative) Urine Glucose (Auto)(UA) Negative mg/dL (Negative) Urine Ketones (Auto) Negative mg/dL (Negative) Urine Blood (Auto) Negative (Negative) Urine Nitrite Negative (Negative) Urine Bilirubin (Auto) Negative (Negative) Urine Urobilinogen (Auto) Normal mg/dL (Normal) Urine Leukocyte Esterase (Auto) Negative (Negative) Urine RBC 0 /HPF (0-2) Urine WBC Occ /HPF (0-4) Urine Squamous Epithelial Cells Occ /LPF Urine Bacteria 0 /HPF (0-FEW) Medications Active Scripts Medications Dose Route/Sig Max Daily Dose Days Date Category Lisinopril 20 Mg Tablet 1 Tab PO DAILY 01/13/22 Reported Acetaminophen 500 Mg Tablet 1 Tab PO PRN Q6HRS PRN 15 01/07/22 Rx Carafate (Sucralfate) 1 Gm Tablet 1 Tab PO QID 30 01/07/22 Rx Omeprazole 20 Mg Capsule. 1 Cap PO DAILY 01/07/22 Rx Impression . Full consult dictated CT reviewed 1.5 cm right upper lobe nodule Acute exacerbation COPD Nonspecific interstitial pneumonitis Prednisone Discharge 01/15 follow-up in the office in 3 to 4 months SHAGUFTA ALBERTO MD Jan 14, 2022 08:12
--- NOTE | 2022-01-14 10:42 | PDOC ---
[facility] PROGRESS NOTE Date of Service DOS: DATE: 01/14/22 TIME: 10:41 Chief Complaint Chief Complaint Respiratory failure Possible pneumonia Possible malignancy Previous tobacco abuse (40-mkum-t-year history), appendectomy, cholecystectomy, . History of Present Illness History of Present Illness Her lungs are01/14/2022 Patient seen exam Discussed with RN Chart reviewed She states she feels better Her lungs are much clearer Vitals/I&O Vitals/I&O: Vital Signs Date Time Temp Pulse Resp B/P (MAP) Pulse Ox O2 Delivery O2 Flow Rate FiO2 01/14/22 07:54 85 104/69 01/14/22 07:40 Nasal Cannula 2.0 01/14/22 07:00 18 96 01/14/22 03:02 98.4 98.4 Physical Exam General: Alert Heart: Regular rate Lungs: Clear Abdomen: Normal bowel sounds Extremities: No clubbing Skin: No rashes Assessment and Plan Assessmemt and Plan Problems Medical Problems: (1) Cough Status: Acute (2) Lower abdominal pain Status: Acute Respiratory failure Possible pneumonia Possible malignancy Previous tobacco abuse (19-uluz-q-year history), appendectomy, cholecystectomy, . Plan IV antibiotics Beta agonist O2 and per nasal cannula Await pulmonary input Home meds DVT prophylaxis Full code Comment Review of Relevant I have reviewed the following items brooke (where applicable) has been applied. Medications: Current Medications Medications (Trade) Dose Ordered Sig/Kat Route PRN Reason Start Time Stop Time Status Last Admin Dose Admin Doxycycline Hyclate 100 mg/ Dextrose 100 ml @ 50 mls/hr Q12HR IV 01/13/22 12:00 01/14/22 07:54 Albuterol/ Ipratropium (Duoneb) 3 ml RTQID NEB 01/13/22 12:00 01/14/22 07:40 Multivitamins (Thera M Plus) 1 tab DAILY PO 01/13/22 12:00 01/14/22 07:54 Aspirin (Aspirin Chewable) 81 mg DAILYWBKFT PO 01/13/22 12:00 01/14/22 07:53 Lisinopril (Prinivil) 20 mg DAILY PO 01/13/22 12:00 01/14/22 07:54 Justifications for Admission Other Justification OCTAVIO ETIENNE III DO Jan 14, 2022 10:42
[2022-01-14 11:00] VITALS: BP 124/64
[2022-01-14] MEDS: cefTRIAXone IV Push 1 GM VIAL. IVP SCH (12:00)
[2022-01-14] MEDS ORDERED: predniSONE 10 MG TABLET PO ONE (14:00)
--- NOTE | 2022-01-14 17:45 | CONS ---
DATE OF CONSULTATION: 01/14/2022 REASON FOR CONSULTATION: The patient is seen in pulmonary consultation at the request of Dr. Sebastian for abnormal chest x-ray. HISTORY OF PRESENT ILLNESS: The patient is a 66-year-old that came in with abdominal pain, some back pain, and short of breath. She underwent a CT chest. I reviewed this CAT scan. There are some ground-glass opacities along with extensive centrilobular emphysematous changes. There is also 15-mm irregular solid nodule. The patient does not carry a history of asthma, COPD, does not wear oxygen. She does not use any inhalers. She used to smoke, but quit many years ago. Has a 19-pwjm-nktr history of tobacco use. Denies fever, chills. No hemoptysis. PAST MEDICAL HISTORY: Tobacco dependence, in remission. She has had previous , appendectomy, cholecystectomy. She currently does not smoke. ALLERGIES: No known drug allergies. FAMILY HISTORY: Diabetes. SOCIAL HISTORY: Smoked for approximately 14 years. REVIEW OF SYSTEMS: As indicated above, otherwise other systems were reviewed and negative. CURRENT MEDICATIONS: List was reviewed. PHYSICAL EXAMINATION: VITAL SIGNS: Stable. O2 saturations greater than 92%. LUNGS: Anteriorly were clear, posteriorly clear with some scattered rhonchi. CARDIOVASCULAR: Regular rate and rhythm with S1, S2. No S3. ABDOMEN: Soft, nontender, nondistended. EXTREMITIES: No clubbing, cyanosis or edema. CT chest was reviewed. LABORATORY DATA: Noted. White count was elevated. Hemoglobin and hematocrit were noted. IMPRESSION: 1. Abnormal CT chest revealing ground-glass opacities compatible with nonspecific interstitial pneumonitis. 2. Tobacco dependence, in remission. 3. Acute exacerbation of chronic obstructive pulmonary disease. 4. A 1.5 cm irregular solid nodule in the right upper lobe. PLAN: 1. Continue current antibiotics. 2. Possible discharge in the a.m., followup in the office with a repeat scan in 3 months. 3. The above was discussed with patient. SEJAL ACHARYA: Ana TID: [id number]
[2022-01-14 19:00] VITALS: BP 137/78
[2022-01-14] MEDS: LACTOBACILLUS RHAMNOSUS GG 1 CAPSULE. PO SCH (21:16)
[2022-01-14 23:00] VITALS: BP 135/68
[2022-01-15 03:00] VITALS: BP 135/78
[2022-01-15 05:59] LABS: CALCIUM 9.3 mg/dL (8.5-10.1); CREATININE 0.9 mg/dL (0.6-1.0); POTASSIUM 4.3 mmol/L (3.5-5.1)
[2022-01-15 07:00] VITALS: BP 154/84
[2022-01-15 07:03] LABS: BASO % 0 % (0-3); EOS % 0 % (0-3); HEMATOCRIT 33.8 % (36.0-47.0); HEMOGLOBIN 11.3 g/dL (12.0-15.5); LYMPH # 0.9 x10^3/uL (1.0-4.8); LYMPH % 10 % (24-48); MEAN CORPUSCULAR HEMOGLOBIN 27 pg (25-35); MEAN CORPUSCULAR HGB CONC 34 g/dL (31-37); MEAN CORPUSCULAR VOLUME 81 fL (79-100); MONO # 0.6 x10^3/uL (0.0-1.1); MONO % 6 % (0-9); NEUT # 7.9 x10^3/uL (1.8-7.7); NEUT % 84 % (31-73); PLATELET COUNT 336 x10^3/uL (140-400); RED BLOOD COUNT 4.19 x10^6/uL (3.50-5.40); RED CELL DISTRIBUTION WIDTH 14.5 % (11.5-14.5); WHITE BLOOD COUNT 9.4 x10^3/uL (4.0-11.0)
[2022-01-15] MEDS: IPRATRPIUM/ALBUTEROL 0.5/2.5MG 3 ML NEBU. NEB SCH ×2 (07:57→11:18)
[2022-01-15] MEDS: MULTIVITAMIN with MINERAL TABLET. PO SCH (08:54)
[2022-01-15] MEDS: LACTOBACILLUS RHAMNOSUS GG 1 CAPSULE. PO SCH (08:54)
[2022-01-15] MEDS: ASPIRIN CHEWABLE 81 MG TABLET. PO SCH (08:54)
[2022-01-15] MEDS: LISINOPRIL 20 MG TABLET PO SCH (08:55)
--- NOTE | 2022-01-15 09:43 | PDOC ---
PULMONARY PROGRESS NOTES DATE: 01/15/22 TIME: 09:43 Subjective Patient not more short of air, Wishes to be discharged Vitals Vital Signs Date Time Temp Pulse Resp B/P (MAP) Pulse Ox O2 Delivery O2 Flow Rate FiO2 01/15/22 08:55 78 154/84 01/15/22 07:57 100 Nasal Cannula 2.0 01/15/22 07:00 97.8 18 97.8 ROS: No Nausea, No Chest Pain, No Abdominal Pain, No Increase Cough General: Alert Lungs: Clear Cardiovascular: S1, S2 Abdomen: Soft Neuro Exam: Alert Extremities: No Edema Skin: Warm Labs Laboratory Tests Test 01/15/22 04:10 White Blood Count 9.4 x10^3/uL (4.0-11.0) Red Blood Count 4.19 x10^6/uL (3.50-5.40) Hemoglobin 11.3 g/dL (12.0-15.5) Hematocrit 33.8 % (36.0-47.0) Mean Corpuscular Volume 81 fL (79-100) Mean Corpuscular Hemoglobin 27 pg (25-35) Mean Corpuscular Hemoglobin Concent 34 g/dL (31-37) Red Cell Distribution Width 14.5 % (11.5-14.5) Platelet Count 336 x10^3/uL (140-400) Neutrophils (%) (Auto) 84 % (31-73) Lymphocytes (%) (Auto) 10 % (24-48) Monocytes (%) (Auto) 6 % (0-9) Eosinophils (%) (Auto) 0 % (0-3) Basophils (%) (Auto) 0 % (0-3) Neutrophils # (Auto) 7.9 x10^3/uL (1.8-7.7) Lymphocytes # (Auto) 0.9 x10^3/uL (1.0-4.8) Monocytes # (Auto) 0.6 x10^3/uL (0.0-1.1) Eosinophils # (Auto) 0.0 x10^3/uL (0.0-0.7) Basophils # (Auto) 0.0 x10^3/uL (0.0-0.2) Sodium Level 140 mmol/L (136-145) Potassium Level 4.3 mmol/L (3.5-5.1) Chloride Level 106 mmol/L (98-107) Carbon Dioxide Level 26 mmol/L (21-32) Anion Gap 8 (6-14) Blood Urea Nitrogen 15 mg/dL (7-20) Creatinine 0.9 mg/dL (0.6-1.0) Estimated GFR (Cockcroft-Gault) 63.0 Glucose Level 141 mg/dL (70-99) Calcium Level 9.3 mg/dL (8.5-10.1) Laboratory Tests Test 01/15/22 04:10 White Blood Count 9.4 x10^3/uL (4.0-11.0) Red Blood Count 4.19 x10^6/uL (3.50-5.40) Hemoglobin 11.3 g/dL (12.0-15.5) Hematocrit 33.8 % (36.0-47.0) Mean Corpuscular Volume 81 fL (79-100) Mean Corpuscular Hemoglobin 27 pg (25-35) Mean Corpuscular Hemoglobin Concent 34 g/dL (31-37) Red Cell Distribution Width 14.5 % (11.5-14.5) Platelet Count 336 x10^3/uL (140-400) Neutrophils (%) (Auto) 84 % (31-73) Lymphocytes (%) (Auto) 10 % (24-48) Monocytes (%) (Auto) 6 % (0-9) Eosinophils (%) (Auto) 0 % (0-3) Basophils (%) (Auto) 0 % (0-3) Neutrophils # (Auto) 7.9 x10^3/uL (1.8-7.7) Lymphocytes # (Auto) 0.9 x10^3/uL (1.0-4.8) Monocytes # (Auto) 0.6 x10^3/uL (0.0-1.1) Eosinophils # (Auto) 0.0 x10^3/uL (0.0-0.7) Basophils # (Auto) 0.0 x10^3/uL (0.0-0.2) Sodium Level 140 mmol/L (136-145) Potassium Level 4.3 mmol/L (3.5-5.1) Chloride Level 106 mmol/L (98-107) Carbon Dioxide Level 26 mmol/L (21-32) Anion Gap 8 (6-14) Blood Urea Nitrogen 15 mg/dL (7-20) Creatinine 0.9 mg/dL (0.6-1.0) Estimated GFR (Cockcroft-Gault) 63.0 Glucose Level 141 mg/dL (70-99) Calcium Level 9.3 mg/dL (8.5-10.1) Medications Active Scripts Medications Dose Route/Sig Max Daily Dose Days Date Category Lisinopril 20 Mg Tablet 1 Tab PO DAILY 01/13/22 Reported Acetaminophen 500 Mg Tablet 1 Tab PO PRN Q6HRS PRN 15 01/07/22 Rx Carafate (Sucralfate) 1 Gm Tablet 1 Tab PO QID 30 01/07/22 Rx Omeprazole 20 Mg Capsule. 1 Cap PO DAILY 01/07/22 Rx Impression . IMPRESSION: 1. Abnormal CT chest revealing ground-glass opacities compatible with nonspecific interstitial pneumonitis. 2. Tobacco dependence, in remission. 3. Acute exacerbation of chronic obstructive pulmonary disease. 4. A 1.5 cm irregular solid nodule in the right upper lobe. Plan . Updated discharge home, patient given a follow-up appointment with me in April PLAN: 1. Continue current antibiotics. 2. Possible discharge in the a.m., followup in the office with a repeat scan in 3 months. 3. The above was discussed with patient. SHAGUFTA ALBERTO MD Jan 15, 2022 09:43
[2022-01-15 11:00] VITALS: BP 127/71
[2022-01-15] MEDS: DOXYCYCLINE HYCLATE 100 MG in IV DEXTROSE 5% 100ML 100 ML IV SCH (11:26)
--- NOTE | 2022-01-15 12:07 | PDOC ---
[facility] PROGRESS NOTE Date of Service DOS: DATE: 01/15/22 TIME: 12:06 Chief Complaint Chief Complaint Respiratory failure Possible pneumonia Possible malignancy Previous tobacco abuse (51-kqrv-r-year history), appendectomy, cholecystectomy, . History of Present Illness History of Present Illness 01/15/2022 Patient seen exam She request discharge She states she feels better She does have a mild antibiotic rash on her back I called the pharmacy were stopping the Rocephin Hope to discharge this afternoon if pulmonary agrees Her lungs are01/14/2022 Patient seen exam Discussed with RN Chart reviewed She states she feels better Her lungs are much clearer Vitals/I&O Vitals/I&O: Vital Signs Date Time Temp Pulse Resp B/P (MAP) Pulse Ox O2 Delivery O2 Flow Rate FiO2 01/15/22 11:20 Nasal Cannula 2.0 01/15/22 08:55 78 154/84 01/15/22 07:57 100 01/15/22 07:00 97.8 18 97.8 I & O 01/14/22 01/14/22 01/15/22 15:00 23:00 07:00 Intake Total 240 ml 120 ml 200 ml Balance 240 ml 120 ml 200 ml Physical Exam General: Alert Heart: Regular rate Lungs: Clear Abdomen: Normal bowel sounds Extremities: No clubbing Skin: No rashes Labs Labs: Laboratory Tests Test 01/15/22 04:10 White Blood Count 9.4 x10^3/uL (4.0-11.0) Red Blood Count 4.19 x10^6/uL (3.50-5.40) Hemoglobin 11.3 g/dL (12.0-15.5) Hematocrit 33.8 % (36.0-47.0) Mean Corpuscular Volume 81 fL (79-100) Mean Corpuscular Hemoglobin 27 pg (25-35) Mean Corpuscular Hemoglobin Concent 34 g/dL (31-37) Red Cell Distribution Width 14.5 % (11.5-14.5) Platelet Count 336 x10^3/uL (140-400) Neutrophils (%) (Auto) 84 % (31-73) Lymphocytes (%) (Auto) 10 % (24-48) Monocytes (%) (Auto) 6 % (0-9) Eosinophils (%) (Auto) 0 % (0-3) Basophils (%) (Auto) 0 % (0-3) Neutrophils # (Auto) 7.9 x10^3/uL (1.8-7.7) Lymphocytes # (Auto) 0.9 x10^3/uL (1.0-4.8) Monocytes # (Auto) 0.6 x10^3/uL (0.0-1.1) Eosinophils # (Auto) 0.0 x10^3/uL (0.0-0.7) Basophils # (Auto) 0.0 x10^3/uL (0.0-0.2) Sodium Level 140 mmol/L (136-145) Potassium Level 4.3 mmol/L (3.5-5.1) Chloride Level 106 mmol/L (98-107) Carbon Dioxide Level 26 mmol/L (21-32) Anion Gap 8 (6-14) Blood Urea Nitrogen 15 mg/dL (7-20) Creatinine 0.9 mg/dL (0.6-1.0) Estimated GFR (Cockcroft-Gault) 63.0 Glucose Level 141 mg/dL (70-99) Calcium Level 9.3 mg/dL (8.5-10.1) Assessment and Plan Assessmemt and Plan Problems Medical Problems: (1) Cough Status: Acute (2) Lower abdominal pain Status: Acute Respiratory failure Possible pneumonia Possible malignancy Previous tobacco abuse (65-fnbs-x-year history), appendectomy, cholecystectomy, . Plan Probable discharge this afternoon on p.o. doxycycline and p.o. Levaquin For now continue the following while we await further pulmonary input; Beta agonist O2 and per nasal cannula Home meds DVT prophylaxis Full code Discharge Comment Review of Relevant I have reviewed the following items brooke (where applicable) has been applied. Medications: Current Medications Medications (Trade) Dose Ordered Sig/Kat Route PRN Reason Start Time Stop Time Status Last Admin Dose Admin Lactobacillus Rhamnosus (Culturelle) 1 cap BID PO 01/14/22 21:00 01/15/22 08:54 Prednisone (Prednisone) 30 mg 1X ONCE PO 01/14/22 14:00 01/14/22 14:01 DC 01/14/22 14:41 Justifications for Admission Other Justification OCTAVIO ETIENNE III DO Jan 15, 2022 12:07
[2022-01-15] MEDS ORDERED: ALBU2.5V8 IH (12:17)
[2022-01-15] MEDS ORDERED: LEVO500T9 PO (12:17)
[2022-01-15] MEDS ORDERED: METH4TAB2 PO (12:17)
[2022-01-15] MEDS ORDERED: DOXY100C3 PO (12:17)
[2022-01-16] MEDS ORDERED: predniSONE 20 MG TABLET PO SCH (09:00)
== END 2022-01-15 15:00 | disposition home or self-care (01) | DRG 193 ==
LOC: ER 01:20 → 4 NORTH 09:52
PROVIDERS: ADMIT Internal Medicine; ATTEND Internal Medicine
DX: J18.9 Pneumonia, unspecified organism (principal); J96.90 Respiratory failure, unspecified, unspecified whether with hypoxia or hypercapnia; J44.0 Chronic obstructive pulmonary disease with (acute) lower respiratory infection; J44.1 Chronic obstructive pulmonary disease with (acute) exacerbation; R10.84 Generalized abdominal pain; F17.201 Nicotine dependence, unspecified, in remission; I10 Essential (primary) hypertension; J84.89 Other specified interstitial pulmonary diseases; Z83.3 Family history of diabetes mellitus; Z90.49 Acquired absence of other specified parts of digestive tract; Z79.899 Other long term (current) drug therapy
CPT/HCPCS: 36415; 71045; 71275; 74176; 74177; 80048; 80053; 81001; 82962; 83605; 84145; 84484; 85025; 87040; 94640; 94760; 96361; 96374; 96375; J0696; J1885; J2405; J3490; J7030; J7060; J7512; Q9967; 99285-25; G0378